=== PATIENT | female | born 1995 | race Caucasian/White ===

== ENCOUNTER 2017-12-21 20:35 | Emergency (ER) | payer SELFPAY ==
[~2017-12-21] VITALS: Ht 162.6 cm; Wt 49.9 kg
[2017-12-21 20:47] VITALS: Ht 162.6 cm; Wt 49.9 kg
[2017-12-21 21:33] LABS: BASOPHIL % 0.3 % (0-2); PLATELET COUNT 258 x10^3mcL (130-400); RED CELL DISTRIBUTION WIDTH 13.7 % (11.5-14.5)
[2017-12-21 21:51] LABS: CALCIUM 8.9 mg/dL (8.5-10.1); CARBON DIOXIDE 25.2 mmol/L (21-32); CHLORIDE SERUM 104 mmol/L (98-107); CREATININE SERUM 0.7 mg/dL (0.6-1.0); GFR1 > 60 mL/min; GLUCOSE SERUM 95 mg/dL (74-106); POTASSIUM SERUM 3.6 mmol/L (3.5-5.1); SODIUM SERUM 140 mmol/L (136-145)
[2017-12-21 21:56] LABS: ALBUMIN 4.1 g/dL (3.4-5.0); ALKALINE PHOSPHATASE 64 U/L (46-116); AST/SGOT 20 U/L (15-37); BILIRUBIN TOTAL 0.56 mg/dL (0.20-1.00); TOTAL PROTEIN, SERUM 7.9 g/dL (6.4-8.2)
[2017-12-21 22:03] LABS: ALT/SGPT 15 U/L (14-59)
[2017-12-21 23:10] VITALS: BP 110/74
== END 2017-12-21 23:29 | disposition home or self-care (01) ==
LOC: ED 20:35
PROVIDERS: Specialist
DX: R51 Headache (principal); R07.89 Other chest pain; R06.02 Shortness of breath; Z90.49 Acquired absence of other specified parts of digestive tract
CPT/HCPCS: J1885